=== PATIENT | female | born 1995 | race Two or more races ===

== ENCOUNTER 2017-01-07 23:23 | Emergency (ER) | payer MEDICAID ==
[~2017-01-07] VITALS: Ht 165.1 cm; Wt 86.2 kg
[2017-01-07 23:30] VITALS: BP 127/74
[2017-01-07] MEDS ORDERED: LORazepam 1mg tab ORAL ONE (23:45)
[2017-01-07] MEDS ORDERED: ATIVAN1 MG ORAL (23:58)
--- NOTE | 2017-01-07 23:58 | Emergency Room Report ---
History of Present Illness General Chief Complaint: Behavioral Complaint Source: Patient, EMS Present Illness HPI Is a 21-year-old female who presents with chief complaint of hyperventilation and anxiety. She had an argument with her family and afterwards she said her heart was beating fast. She couldn't breathe very well. Said that she was dizzy and lightheaded. She felt like she will pass out. No nausea no vomiting. No chest pain. No suicidal thought or homicidal thought. Allergies: Coded Allergies: No Known Allergies (Unverified , 01/07/17) Patient History Past Medical History: none, see triage record, old chart reviewed Past Surgical History: none Pertinent Family History: none Social History: Denies: smoking Last Menstrual Period: unk Now: No Immunizations: other Reviewed Nursing Documentation: PMH: Agreed, PSxH: Agreed Nursing Documentation-PMH Past Medical History: No Stated History Review of Systems Eye: Denies: blurred vision, eye pain ENT: Denies: ear pain, nose congestion, throat swelling Respiratory: Reports: shortness of breath, Denies: cough Cardiovascular: Reports: palpitations, Denies: chest pain Gastrointestinal: Denies: abdominal pain, diarrhea, nausea, vomiting Musculoskeletal: Denies: back pain, joint pain Skin: Denies: rash Neurological: Denies: headache, numbness Endocrine: Denies: increased thirst, increased urine Hematologic/Lymphatic: Denies: easy bruising All Other Systems: negative except mentioned in HPI Physical Exam Vital Signs Date Time Temp Pulse Resp B/P Pulse Ox O2 Delivery O2 Flow Rate FiO2 01/07/17 23:22 98.4 97 16 127/74 99 Room Air vitals normal Sp02 EP Interpretation: reviewed, normal General Appearance: well appearing, no apparent distress, alert Head: normocephalic, atraumatic Eyes: bilateral eye EOMI, bilateral eye PERRL ENT: hearing grossly normal, normal pharynx Neck: full range of motion, supple, no meningismus Respiratory: chest non-tender, lungs clear, normal breath sounds Cardiovascular #1: regular rate, rhythm, no murmur Gastrointestinal: normal bowel sounds, non tender, no mass, no organomegaly, no bruit, non-distended Musculoskeletal: back normal, gait/station normal, normal range of motion Neurologic: alert, oriented x3 Psychiatric: anxious Skin: warm/dry Medical Decision Making Diagnostic Impression: Primary Impression: Stress reaction ER Course Patient with acute stress reaction and panic attack. No evidence of suicidal thought homicidal thought. We'll discharge home. Last Vital Signs Date Time Temp Pulse Resp B/P Pulse Ox O2 Delivery O2 Flow Rate FiO2 01/07/17 23:22 98.4 97 16 127/74 99 Room Air Status: improved Disposition: HOME, SELF-CARE Condition: Stable Scripts Lorazepam* (ATIVAN*) 1 Mg Tablet 1 MG ORAL THREE TIMES A DAY, #20 TAB Prov: RAMON STRATTON M.D. 01/07/17 Referrals: [facility],REFERRING (PCP) Additional Instructions: Followup with your Dr. in 7 days. Return if symptom worsen. RAMON STRATTON M.D. Jan 07, 2017 23:58
[2017-01-08] VITALS: BP 127/74
== END 2017-01-08 | disposition home or self-care (01) ==
LOC: EDBD 23:23 → EMR 23:34
DX: F43.0 Acute stress reaction (principal); F41.9 Anxiety disorder, unspecified
CPT/HCPCS: 99283